=== PATIENT | male | born 1970 | race Two or more races ===

== ENCOUNTER 2022-11-13 21:40 | Emergency (ER) | payer SELFPAY ==
[~2022-11-13] VITALS: Ht 175.3 cm; Wt 80.0 kg
[2022-11-13 22:58] LABS: Basophils # (auto) 0 10 ^3/uL (0-0.2); Basophils % (auto) 0.6 % (0.0-2.0); Eosinophils # (auto) 0 10 ^3/uL (0-0.8); Eosinophils % (auto) 0.2 % (0.0-7.0); Hematocrit 35.5 % (41.0-53.0); Hemoglobin 11.8 g/dL (13.5-17.5); Lymphocytes # (auto) 0.8 10 ^3/uL (0.4-5.4); Lymphocytes % (auto) 10.8 % (10.0-50.0); Mean Corpuscular Hemoglobin 28.9 pg (28.0-32.0); Mean Corpuscular Hgb Conc. 33.3 g/dL (32.0-36.0); Mean Corpuscular Volume 86.8 fL (80.0-100.0); Monocytes # (auto) 0.4 10 ^3/uL (0-1.3); Monocytes % (auto) 5.7 % (0.0-12.0); Neutrophils # (auto) 6.1 10 ^3/uL (1.6-8.6); Neutrophils % (auto) 82.7 % (37.0-80.0); Red Cell Distribution Width 14.9 % (11.8-14.3); White Blood Cell 7.4 10^3/uL (4.4-10.8)
[2022-11-13 23:15] LABS: Albumin 3.1 g/dL (3.4-5.0); Potassium 3.8 mmol/L (3.5-5.1)
[2022-11-13 23:17] LABS: BUN/Creatinine Ratio 10.3 (10.0-20.0)
[2022-11-13 23:19] LABS: Bilirubin, Total 0.2 mg/dL (0.2-1.0); Total Protein 7.2 g/dL (6.4-8.2)
[2022-11-13 23:20] LABS: Lactic Acid w/Reflex 2.8 mmol/L (0.4-2.0)
[2022-11-14] MEDS: LACTATED RINGER'S 1,000 ML IV ONE ×2 (01:45→02:00)
[2022-11-14 02:28] LABS: Salicylate < 1.7 mg/dL (2.8-20.0)
[2022-11-14 02:51] LABS: Acetaminophen < 2.0 ug/mL (10-30)
[2022-11-14] MEDS ORDERED: LACTATED RINGER'S 2,000 ML IV ONE (05:45)
[2022-11-14 07:20] LABS: Urine Bacteria NONE SEEN /hpf (None Seen); Urine Blood Negative /uL (Negative); Urine Hyaline Cast FEW /lpf (0 - 2); Urine Specific Gravity 1.004 (1.001-1.035); Urine WBC <1 /hpf (0 - 3)
[2022-11-14 07:38] LABS: Amphetamine Screen, Urine NEGATIVE (NEGATIVE); Barbiturate Scree,Urine NEGATIVE (NEGATIVE); Benzodiazephine Screen, Urine NEGATIVE (NEGATIVE); Cannabinoid Screen, Urine NEGATIVE (NEGATIVE); Cocaine Screen, Urine NEGATIVE (NEGATIVE); Opiate Scree,Urine NEGATIVE (NEGATIVE); Phencyclidine Screen, Urine NEGATIVE (NEGATIVE)
[2022-11-14 11:12] VITALS: BP 147/98
== END 2022-11-14 11:16 | disposition home or self-care (01) ==
LOC: EDBD 21:40 → ER 21:40
DX: R45.851 Suicidal ideations (principal); F10.129 Alcohol abuse with intoxication, unspecified; Z59.00 Homelessness unspecified
CPT/HCPCS: 36415; 71045; 80053; 80307; 80320; 80329; 81001; 82010; 83605; 83880; 84484; 85025; 96360; 96361